=== PATIENT | female | born 1975 | race African-American/Black ===

== ENCOUNTER 2021-07-15 15:19 | Emergency (ER) | payer BC ==
[~2021-07-15] VITALS: Ht 162.6 cm; Wt 129.3 kg
[2021-07-15] MEDS ORDERED: HYDROCODON-ACE1 EA12 PO (19:06)
== END 2021-07-15 19:35 | disposition home or self-care (01) ==
LOC: FSED 15:38
DX: R10.30 Lower abdominal pain, unspecified (principal); N83.202 Unspecified ovarian cyst, left side; I10 Essential (primary) hypertension; E78.5 Hyperlipidemia, unspecified
CPT/HCPCS: 74177; 80053; 85025; 99284

== ENCOUNTER 2025-03-17 11:37 | Emergency (ER) | payer BC ==
[~2025-03-17] VITALS: Ht 162.6 cm; Wt 134.8 kg
[~2025-03-17 11:37] MED LIST: HYDROCODON-ACE1 EA12 PO
[2025-03-17] MEDS ORDERED: XIGDUO XR 5 MG1 EAC1 (12:04)
[2025-03-17] MEDS ORDERED: OZEMPIC1 MG/0.71 (12:04)
[2025-03-17] MEDS ORDERED: TRIBENZOR 40-11 EAC1 (12:04)
[2025-03-17] MEDS ORDERED: ATORVASTATIN CA20 MG PO (12:04)
[2025-03-17] MEDS: KETOROLAC TROMETHAMINE 60 MG/2 ML VIAL IM STA (12:57)
[2025-03-17] MEDS ORDERED: ULTRAM 50MG50 MG PO (13:47)
[2025-03-17] MEDS: Morphine 4mg INJECTION 4 MG/ML INJ IM STA (14:12)
[2025-03-17 14:14] VITALS: PULSE 79; RESP 18; TEMP 98.4; O2SAT 97
== END 2025-03-17 14:14 | disposition home or self-care (01) ==
LOC: FSED 11:55
DX: M79.605 Pain in left leg (principal); I10 Essential (primary) hypertension; E11.9 Type 2 diabetes mellitus without complications; E78.5 Hyperlipidemia, unspecified; E66.01 Morbid (severe) obesity due to excess calories
CPT/HCPCS: 93971; 96372; 99283; J1885; J2270